=== PATIENT | female | born 1965 | race Caucasian/White ===

== ENCOUNTER 2025-02-24 21:39 | Emergency (ER) | payer MEDICAID ==
[~2025-02-24] VITALS: Ht 160 cm; Wt 55.0 kg
[2025-02-24 21:43] VITALS: BP 113/69; PULSE 68; RESP 16; TEMP 36.9; O2SAT 99
[2025-02-24] MEDS ORDERED: HYDR-4001 MT (22:50)
[2025-02-24] MEDS: HYDROCODONE/ACETAMINOPHEN 5/325MG TABLET PO ONE (22:52)
== END 2025-02-24 23:08 | disposition home or self-care (01) ==
LOC: ER 21:39
DX: R10.2 Pelvic and perineal pain (principal); Z76.0 Encounter for issue of repeat prescription; F41.9 Anxiety disorder, unspecified
CPT/HCPCS: 99283